=== PATIENT | male | born 1980 | race Caucasian/White ===

== ENCOUNTER 2020-06-27 17:55 | Emergency (ER) | payer OTHER ==
[~2020-06-27 17:55] MED LIST: LEVAQUIN500 MG PO; NORCO 5-325 TA1 EACH PO; ZOFRAN4 MG PO
[2020-06-27] MEDS ORDERED: ROBAXIN 750 MG750 MG PO (19:11)
[2020-06-27] MEDS ORDERED: PERCOCET 5/325 T1 EA PO (19:11)
== END 2020-06-27 19:45 | disposition home or self-care (01) ==
LOC: ER1 17:55
DX: M54.9 Dorsalgia, unspecified (principal); Z90.49 Acquired absence of other specified parts of digestive tract
CPT/HCPCS: 96372; 99283; J2270; J2550

== ENCOUNTER 2022-01-24 13:35 | Emergency (ER) | payer OTHER ==
[~2022-01-24 13:35] MED LIST changes: +PERCOCET 5/325 T1 EA PO; +ROBAXIN 750 MG750 MG PO
[2022-01-24 14:00] LABS: HEMOGLOBIN 15.5 gm/dl (14.0-17.5); RED BLOOD COUNT 5.37 M/UL (4.20-5.50)
[2022-01-24 14:34] LABS: BUN/CREATININE RATIO 9 (0-10)
[2022-01-24] MEDS ORDERED: OMEPRAZOLE40 MG PO (17:35)
== END 2022-01-24 17:45 | disposition home or self-care (01) ==
LOC: ER1 13:35
PROVIDERS: Family Medicine
DX: R10.13 Epigastric pain (principal); Z90.49 Acquired absence of other specified parts of digestive tract; Z88.2 Allergy status to sulfonamides; Z88.5 Allergy status to narcotic agent
CPT/HCPCS: 71045; 80053; 82550; 82553; 83690; 84484; 85025; 93005; 99284